=== PATIENT | female | born 1975 | race African-American/Black ===

== ENCOUNTER 2017-05-03 15:06 | Emergency (ER) | payer OTHER ==
[~2017-05-03] VITALS: Ht 167.6 cm; Wt 99.8 kg
--- NOTE | ~2017-05-03 | EKG ---
[place] [id number] [employer] [place] [address] ELECTROCARDIOGRAM REPORT Name: YULIAONEYDA Rios [id number] Admission: 05/03/17 Attend Phys: Discharge: 05/03/17 Date of : 79 Report #: [id number] THIS REPORT FOR: //name// [facility] ED Test Date: 2017-05-03 Test Time: 17:31:37 Pat Name: ONEYDA BENDER Department: Room: Gender: F [employer] Adjuster: ROBIN : 1975 Requested By: Shanita Quinones Order Number: [id number] MD: Nakul Hatch Measurements Intervals [place] Rate: 107 P: 66 WV: 122 QRS: 34 QRSD: 81 T: 3 QT: 344 QTc: 459 Interpretive Statements Sinus tachycardia Otherwise no significant abnormality Compared to ECG 03/31/2011 18:29:06 no significant change Electronically Signed On 05-04-2017 7:29:45 BOND CLERK by Nakul Hatch [email or web address] <ELECTRONICALLY SIGNED> By: Nakul Hatch MD, [facility] 05/04/17 0729 1731 1731 Nakul Hatch MD, FACC /EPI
[~2017-05-03 15:06] MED LIST: DAY TIME COLD-237 ML PO; NOHOMEMEDICATIONS
[2017-05-03 18:20] LABS: ABSOLUTE NEUTROPHILS 3.1 thou/uL (1.4-8.2); BASOPHILS 0.8 % (0.0-2.0); EOSINOPHILS 0.4 % (0.0-3.0); HEMATOCRIT 38.1 % (37.0-47.0); HEMOGLOBIN 13.5 gm/dL (12.0-15.0); LYMPHOCYTES 40.2 % (24.0-44.0); MCH 42.5 pg (26.0-34.0); MCHC 35.4 g/dL (28.0-37.0); MCV 120.2 fL (80.0-100.0); MONOCYTES 1.8 % (1.0-8.0); PLATELET COUNT 112 thou/uL (150-400); POLYS 56.8 % (36.0-66.0); RBC 3.17 mil/uL (4.20-5.00); RDW 12.7 % (10.5-14.5); WBC 5.4 thou/uL (4.0-11.0)
[2017-05-03 18:30] LABS: ANION GAP 11 mmol/L (7-16); BUN 8 mg/dL (7-18); CALCIUM 8.9 mg/dL (8.5-10.1); CHLORIDE 101 mmol/L (98-107); CO2 26 mmol/L (21-32); CREATININE 0.8 mg/dL (0.6-1.0); GLUCOSE 140 mg/dL (74-106); POTASSIUM 3.6 mmol/L (3.5-5.1); SODIUM 138 mmol/L (136-145)
[2017-05-03 18:39] LABS: ALBUMIN 3.5 g/dL (3.4-5.0); SGOT 144 U/L (15-37); SGPT 64 U/L (30-65); TOTAL BILIRUBIN 1.2 mg/dL (<0.1-1.0); TOTAL PROTEIN 7.4 g/dL (6.4-8.2); TROPONIN-I < 0.04 ng/mL (<0.06)
== END 2017-05-03 19:37 | disposition home or self-care (01) ==
LOC: ER 15:06
PROVIDERS: Nurse Practitioner Family
DX: I16.0 Hypertensive urgency (principal); R19.7 Diarrhea, unspecified; R79.89 Other specified abnormal findings of blood chemistry; B34.9 Viral infection, unspecified; F17.210 Nicotine dependence, cigarettes, uncomplicated